=== PATIENT | female | born 1985 | race Caucasian/White ===

== ENCOUNTER 2018-03-24 13:09 | Day surgery (SDC) | payer MEDICAID ==
[~2018-03-24] VITALS: Ht 157.5 cm; Wt 73.7 kg
[2018-03-24 13:38] VITALS: BP 125/75; PULSE 83; TEMP 98.7
--- NOTE | 2018-03-24 13:45 | NUR ---
TO RM AT 1315- CALL LIGHT IN REACH FRIEND FRANCESCO AT BEDSIDE.
[2018-03-24 15:00] VITALS: BP 112/73; PULSE 96
--- NOTE | 2018-03-24 15:00 | NUR ---
Pt to GI bay 7 via cart from ENDO. Pt awake and alert. Pt to recliner with stand by assist. Warm blankets provided. Friend in room. Ice chips given per pt request. Pt denies pain or nausea at this time. Will continue to monitor. Call light within reach.
[2018-03-24 15:15] VITALS: BP 111/74; PULSE 76
--- NOTE | 2018-03-24 15:15 | NUR ---
Pt resting. Denies pain or nausea. Apple juice given per pt request. Will continue to monitor. Call light within reach.
[2018-03-24 15:30] VITALS: BP 97/74; PULSE 74
--- NOTE | 2018-03-24 15:30 | NUR ---
Pt continues to rest. Denies needs. Call light within reach.
[2018-03-24 15:45] VITALS: BP 106/72; PULSE 71
--- NOTE | 2018-03-24 15:45 | NUR ---
Pt continues to rest. Denies needs. Call light within reach.
[2018-03-24 16:15] VITALS: BP 118/81; PULSE 76
--- NOTE | 2018-03-24 16:15 | NUR ---
Pt continues to rest. Denies needs. Call light within reach.
--- NOTE | 2018-03-24 16:43 | NUR ---
Discharge instructions discussed with pt and friend. Pt voices understading. IV site discontinued with all parts intact. Pt up to dress. Call light within reach.
--- NOTE | 2018-03-24 16:46 | NUR ---
Pt escorted to private car via wheel chair. Pt accompanied home by her friend.
== END 2018-03-24 16:46 | disposition home or self-care (01) ==
LOC: SDCO 13:09
DX: K83.8 Other specified diseases of biliary tract (principal); Z90.49 Acquired absence of other specified parts of digestive tract; K80.50 Calculus of bile duct without cholangitis or cholecystitis without obstruction; Z85.830 Personal history of malignant neoplasm of bone; Z89.611 Acquired absence of right leg above knee
CPT/HCPCS: C1769; J2704; J7030

== ENCOUNTER 2018-11-13 08:40 | Day surgery (SDC) | payer MEDICAID ==
[~2018-11-13] VITALS: Ht 157.5 cm; Wt 73.6 kg
[2018-11-13 09:09] VITALS: BP 118/74; PULSE 78; TEMP 98.4
[2018-11-13] MEDS ORDERED: VITAMIN C500 MG PO (09:19)
[2018-11-13] MEDS ORDERED: WOMEN'S DAILY1 TAB PO (09:19)
[2018-11-13] MEDS ORDERED: LYSINE 500500 MG/TAB PO (09:20)
--- NOTE | 2018-11-13 09:21 | NUR ---
TO BAY AT 0845- CALL LIGHT IN REACH FRIEND ZAKI AT BEDSIDE.
[2018-11-13 11:15] VITALS: BP 138/85; PULSE 81; TEMP 97.6
--- NOTE | 2018-11-13 11:15 | NUR ---
TO BAY 6 PER CART FROM ENDOSCOPY. TRANSFERED SELF TO RECLINER FROM CART WITH PIVOTING ON L LEG. ALERT ORIENTED X3, TALKING TO STAFF AND FRIEND. RECEIVED APPLE JUICE
[2018-11-13 11:30] VITALS: BP 127/60; PULSE 82
--- NOTE | 2018-11-13 11:30 | NUR ---
DR YOUNG INTO TALK WITH PATIENT AND FRIEND.
[2018-11-13 11:45] VITALS: BP 119/82; PULSE 83
--- NOTE | 2018-11-13 11:45 | NUR ---
RECEIVED MUFFIN AND CRANBERRY JUICE.
--- NOTE | 2018-11-13 11:50 | NUR ---
ATE 100% AND TOLERATED WELL RECEIVED DISCHARGE INSTRUCTIONS AND VERBALIZED UNDERSANDING. DISCONTINUED IV AND INT- CATHETER INTACT. PATIENT GETTING DRESSED
[2018-11-13 11:55] VITALS: BP 105/61; PULSE 72
--- NOTE | 2018-11-13 12:10 | NUR ---
DISCHARGED PER WC BY NURSING STAFF TO PRIVATE CAR IN CARE OF FRIEND ZAKI.
== END 2018-11-13 12:10 | disposition home or self-care (01) ==
LOC: SDCO 08:40
DX: K52.9 Noninfective gastroenteritis and colitis, unspecified (principal); K62.89 Other specified diseases of anus and rectum; Z90.49 Acquired absence of other specified parts of digestive tract
CPT/HCPCS: OP; J2250; J3010; J7030

== ENCOUNTER 2021-03-20 08:49 | Day surgery (SDC) | payer MEDICAID ==
[~2021-03-20] VITALS: Ht 157.5 cm; Wt 72.2 kg
[~2021-03-20 08:49] MED LIST: LYSINE 500500 MG/TAB PO; VITAMIN C500 MG PO; WOMEN'S DAILY1 TAB PO
[2021-03-20] MEDS ORDERED: DELZICOL PO (09:43)
[2021-03-20] MEDS ORDERED: PRIL40 PO (09:43)
[2021-03-20 10:01] VITALS: BP 106/50; PULSE 82; TEMP 97.7
[2021-03-20 12:00] VITALS: BP 105/66; PULSE 77; TEMP 97.9
[2021-03-20 12:15] VITALS: BP 114/72; PULSE 75
[2021-03-20 12:30] VITALS: BP 111/68; PULSE 65
[2021-03-20 12:45] VITALS: BP 111/75; PULSE 72
--- NOTE | 2021-03-20 13:10 | NUR ---
1200 Pt returns from endo procedure via cart and RN assist to GI Foard 3. Pt ambulates from cart to recliner with RN assist. Monitors on and alarms set. Call light within reach. Report received from KIMMY García. Pt alert and oriented. Pt requests muffin and juice. Pt denies any pain or nausea. 1215 Pt taking food and drink well. No complications noted. 1305 Discharge instructions given to pt and friend. All questions answered to their satisfaction. Handed to pt are a thank you card and discharge information. 1310 Pt transferred out of the hospital via wheelchair and Luther assist, to private vehicle driven by friend.
== END 2021-03-20 13:10 | disposition home or self-care (01) ==
LOC: SDCO 08:49
DX: K51.911 Ulcerative colitis, unspecified with rectal bleeding (principal); R19.7 Diarrhea, unspecified; K92.1 Melena; K62.89 Other specified diseases of anus and rectum; K21.9 Gastro-esophageal reflux disease without esophagitis; Z90.49 Acquired absence of other specified parts of digestive tract; Z79.899 Other long term (current) drug therapy; Z85.830 Personal history of malignant neoplasm of bone
CPT/HCPCS: J2704; J7120